=== PATIENT | male | born 1950 | race Caucasian/White ===

== ENCOUNTER → 2019-11-18 14:30 | Outpatient (BNVA) | payer MEDICARE, SELFPAY | PROVIDERS: Family Provider Nurse Practitioner Family; PCP Family Medicine; Visit Provider Family Medicine | DX: I11.0 Hypertensive heart disease with heart failure; M54.5 Low back pain; M25.511 Pain in right shoulder; I50.23 Acute on chronic systolic (congestive) heart failure; M19.90 Unspecified osteoarthritis, unspecified site; R73.09 Other abnormal glucose; Z13.1 Encounter for screening for diabetes mellitus; Z13.220 Encounter for screening for lipoid disorders; Z13.6 Encounter for screening for cardiovascular disorders | CPT/HCPCS: 80053; 80061; 83036 ==

== ENCOUNTER → 2020-05-25 14:28 | Outpatient (BNVA) | payer MEDICARE, SELFPAY | PROVIDERS: Family Provider Nurse Practitioner Family; PCP Family Medicine; Visit Provider Emergency Medicine | DX: M25.561 Pain in right knee (principal); G89.29 Other chronic pain; Z96.652 Presence of left artificial knee joint; R60.9 Edema, unspecified; I50.23 Acute on chronic systolic (congestive) heart failure; F01.51 Vascular dementia, unspecified severity, with behavioral disturbance; I11.0 Hypertensive heart disease with heart failure | CPT/HCPCS: 73562; 80053; 83880; 84443; 85025 ==

== ENCOUNTER 2020-07-31 18:36 | Inpatient (IN) | payer OTHER, SELFPAY ==
[2020-07-31] VITALS (13 sets, daily range): BP systolic 130–169; BP diastolic 61–101; PULSE 96–106; RESP 12–27; TEMP 37.7–38.1; O2SAT 90–99; BMI 45.6
--- NOTE | 2020-07-31 18:55 | XRR_ITS ---
PROCEDURE INFORMATION: Exam: XR Chest Exam date and time: 07/31/2020 7:21 PM Age: 69 years old Clinical indication: Fever; Additional info: Fever, hypoxia TECHNIQUE: Imaging protocol: XR of the chest Views: 1 view. COMPARISON: CR Chest 2 views* [id number] 12/11/2015 7:24 AM FINDINGS: Lungs: The lungs are mildly under inflated. Mild left basilar atelectasis and likely early airspace disease. Mild perihilar peribronchial thickening. Pleural spaces: Unremarkable. No pleural effusion. No pneumothorax. Heart/Mediastinum: Cardiac shadow is near the upper limit of normal size. Bones/joints: No acute abnormality. XR/XR chest 1V portable [id number] IMPRESSION: Findings suggest developing left basilar pneumonia.
--- NOTE | 2020-07-31 18:55 | USCV_ITS ---
Bashir Lyon Age: 69 Gender: M : 1950 Exam Date: 07/31/2020 19:41 Ordering Phys: Florian Montelongo DO Technologist: David Gorman Exam Location: [facility] [place] Indication: PAINFUL LT ARM HISTORY: Pain in lt arm PROCEDURES: Venous duplex imaging was performed in only the left upper extremity. The following venous structures were evaluated: internal jugular vein, subclavian vein, axillary vein, and brachial veins. In addition, the basilic vein, cephalic vein, radial vein, and ulnar vein. Serial compression, augmentation maneuvers, and spectral Doppler flow evaluation were performed. FINDINGS: No DVT seen in any vessel examined. CONCLUSIONS No evidence of DVT in the above-mentioned identifiable veins. Dr Maria Elena Mcclelland MD [facility] (Electronically Signed) Final Date: 01 August 2020 17:30 S
--- NOTE | 2020-07-31 18:57 | ECG_ITS ---
[facility] Test Date: 2020-07-31 Pat Name: Bashir Lyon Department: Room: 104 Gender: Male Aircraft Time Clerk: : 1950 Requested By: Florian Callahan Order Number: [id number] Acacia MD: Garret Santos M.D. Measurements Intervals [place] Rate: 103 P: -17 VT: 148 QRS: -61 QRSD: 128 T: 92 QT: 353 QTc: 464 Interpretive Statements SINUS TACHYCARDIA RIGHT BUNDLE BRANCH BLOCK [120+ ms QRS DURATION, UPRIGHT V1, 40+ ms S IN I/aVL/V4/V5/V6] LEFT ANTERIOR FASCICULAR BLOCK [QRS AXIS <= -45, QR IN I, RS IN II] LEFT VENTRICULAR HYPERTROPHY AND ST-T CHANGE [VOLTAGE CRITERIA PLUS ST/T ABNORMALITY] POSSIBLE SEPTAL MYOCARDIAL INFARCTION , OF INDETERMINATE AGE [30 ms Q WAVE IN V1/V2] Compared to ECG 12/09/2015 11:20:45 Right bundle-branch block now present Myocardial infarct finding now present ST (T wave) deviation still present Electronically Signed On 08-01-2020 19:20:22 CDT by Garret Santos M.D. [id number]
[2020-07-31 19:11] LABS: Basophils % 0.3 %; Eosinophils % 0.4 %; Hemoglobin 14.9 g/dL (11.7-16.6); Lymphocytes # 0.8 10^3/uL (0.8-4.8); Lymphocytes % 7.3 %; Mean Corpuscular HGB Conc 33.1 g/dL (30.0-36.0); Mean Corpuscular Volume 93.8 fL (80-94); Mean Platelet Volume 11.9 fL (7.4-10.4); Monocytes # 1.4 10^3/uL (0.2-0.9); Monocytes % 12.3 %; Neutrophils # 8.71 10^3/uL (1.8-7.7); Neutrophils % 79.2 %; Nucleated Red Blood Cells % 0 %; Platelet Count 188 10^3/cmm (130-400); Red Cell Distribution Width 13.2 % (12.1-15.1)
[2020-07-31 19:24] LABS: Lactate (Lactic Acid level) 0.9 mmol/L (0.5-2.2)
[2020-07-31 19:26] LABS: Troponin(5th) Baseline 38 ng/L (0-15)
[2020-07-31 19:38] LABS: ABG PCO2 58.3 mmHg (35-45); ABG PH Result 7.33 (7.35-7.45); Arterial Blood Gas Hematocrit 45.7 % (42-52); Base Excess ABG 3.3 mmol/L (-2.0-2.0); Blood Gas Allen Test Pos; Blood Gas Sample Site Radial, right; Blood Gas Sample Type Arterial; HCO3 ABG 30.9 mmol/L (22-26); Oxygen Device NC; PO2 ABG 73.1 mmHg (80.0-100.0)
[2020-07-31 19:42] LABS: Alanine Aminotransferase 15 U/L (0-41); Albumin Level 3.7 g/dL (3.5-5.2); Alkaline Phosphatase 85 IU/L (40-130); Anion Gap 14.9 (5-19); Aspartate Amino Transferase 15 U/L (0-40); Blood Urea Nitrogen 14 mg/dL (8-23); C Reactive Protein 173.6 mg/L (0.0-4.9); Calcium 8.4 mg/dL (8.5-10.5); Carbon Dioxide 26 mmol/L (22-29); Chloride 100 mmol/L (98-107); Globulin 4.1 g/dL (1.3-4.6); Glucose 103 mg/dL (65-115); Lipase 32 U/L (13-60); Osmolality Calculated 285 mOsm/kg (285-295); Potassium 3.9 mmol/L (3.5-5.1); Procalcitonin 0.21 ng/mL (0-0.5); Sodium 137 mmol/L (136-145); Total Bilirubin 1.1 mg/dL (0.15-1.2); Total Protein 7.8 g/dL (6.6-8.7)
[2020-07-31 19:50] LABS: Creatine Phosphokinase 441 U/L (39-308)
[2020-07-31] MEDS: haloperidol inj 5 mg/mL INJ 1 mL 3 MG IVP (20:01)
[2020-07-31] MEDS: ondansetron 2 mg/ML SDV 2 mL 4 MG IVP (20:17)
[2020-07-31] MEDS: morphine 4 mg/mL SDV 1 mL IVP (20:17)
--- NOTE | 2020-07-31 20:57 | ECG_ITS ---
[facility] Test Date: 2020-07-31 Pat Name: Bashir Lyon Department: Room: 104 Gender: Male Feeder Operator: : 1950 Requested By: Florian Callahan Order Number: [id number] Acacia MD: Garret Santos M.D. Measurements Intervals [place] Rate: 100 P: -11 AK: 147 QRS: -66 QRSD: 119 T: 84 QT: 353 QTc: 457 Interpretive Statements SINUS TACHYCARDIA INCOMPLETE RIGHT BUNDLE BRANCH BLOCK [90+ ms QRS DURATION, TERMINAL R IN V1/V2, 40+ ms S IN I/aVL/V4/V5/V6] LEFT ANTERIOR FASCICULAR BLOCK [QRS AXIS <= -45, QR IN I, RS IN II] LEFT VENTRICULAR HYPERTROPHY AND ST-T CHANGE [VOLTAGE CRITERIA PLUS ST/T ABNORMALITY] POSSIBLE SEPTAL MYOCARDIAL INFARCTION , OF INDETERMINATE AGE [30 ms Q WAVE IN V1/V2] Compared to ECG 12/09/2015 11:20:45 Incomplete right bundle-branch block now present Myocardial infarct finding now present ST (T wave) deviation still present Electronically Signed On 08-01-2020 19:25:39 CDT by Garert Santos M.D. [id number]
--- NOTE | 2020-07-31 21:40 | P.HP_ITS ---
Providers/Chief Complaint Primary Care Provider: Tanya Bowman MD Chief Complaint: LEFT ELBOW PAIN History of Present Illness Bashir Lyon is a 69 year old male who has been evaluated by primary care physician multiple times for resistant hypertension and drowsiness, presented today for worsening of arm pain and shortness of breath. Patient is not reliable historian, oldest son is in the room point stating that for last few days his father has been drowsy, his antipsychotic medication and Lyrica dose has been adjusted. Patient is stating that he is in the hospital because of worsening of left arm swelling and pain. He is not sure whether he had any insect bites however endorsing swelling started from his knuckles which p rogressed to his dorsum of his hand and now involving forearm. He is denying fever, facial droop, dysphagia, gait instability. He is denying chest pain orthopnea and PND and stating that he is compliant with his medication and takes diuretic twice a day. He was really upset in the emergency department because he was on BiPAP and we were not letting him drink water. Son endorsed that at home he is not very mobile he stays in his couch, he does not smoke or drink alcohol does not use any oxygen at home, he eats canned/junk food as well. Does not follow any restricted diet Diagnosis in the ER revealed left-sided community-acquired pneumonia for which he was started on vancomycin and Zosyn, leukocytosis noted with low-grade temperature, his confusion and drowsiness improved after we put him on BiPAP ABG revealed hypoxic respiratory acidosis, for sinus tachycardia and hypoxia CTA chest was requested by myself, left upper extremity Doppler did not reveal any DVT, BMP revealed EVELYN procalcitonin not remarkable currently patient is chest pain-free troponin not significantly high On 07/30 he was started on doxycycline for cellulitis of left arm Review of records revealed that he was evaluated by PCP who decreased his Lyrica because of his drowsiness and recommended not to drive until reevaluated. Review of Systems Const: Reports: change in appetite, change in weight, fatigue and malaise; Denies: fever(s) or chills Eyes: Denies: change in vision ENMT: Denies: throat pain Card: Reports: swelling of feet/ankles and dyspnea on exertion Resp: Reports: dyspnea and non-productive cough GI: Denies: abdominal pain : Denies: flank pain Musc: Denies: neck pain Skin/Breast: Reports: lesions, dry skin, striae and nail changes Neuro: Denies: headache(s) Psych: Reports: irritability; Denies: anxiety Endo: Denies: polyuria Chandrakant/Lymph: Denies: easy bruising All/Imm: Denies: urticaria Medications/Allergies Home Medications Medication Instructions Recorded Confirmed Last Taken Type cyclobenzaprine 10 mg tablet 15 mg PO TID tab 05/10/19 07/30/20 Unknown History albuterol sulfate 90 mcg/actuation 2 puff INHALATION Q6H PRN 30 Days 08/20/19 07/30/20 Unknown Rx aerosol inhaler #18 gm hydroxyzine HCl 50 mg tablet 50 mg PO TID PRN #180 tab 10/13/19 07/30/20 Unknown Rx mirtazapine 30 mg tablet 30 mg PO .at bedtime #30 tab 05/18/20 07/30/20 Unknown Rx quetiapine 400 mg tablet 400 mg PO BID #60 tab 05/18/20 07/30/20 Unknown Rx sertraline 100 mg tablet 150 mg PO DAILY #45 tab 05/18/20 07/30/20 Unknown Rx furosemide 20 mg tablet 10 mg PO QAM #30 tab 05/25/20 07/30/20 Unknown Rx amlodipine 10 mg tablet 10 mg PO DAILY 30 Days #30 tab 06/08/20 07/30/20 Unknown Rx atenolol 100 mg tablet 100 mg PO DAILY 30 Days #30 tab 06/08/20 07/30/20 Unknown Rx furosemide 40 mg tablet 40 mg PO DAILY 30 Days #30 tab 06/08/20 07/30/20 Unknown Rx hydralazine 10 mg tablet 10 mg PO TID 30 Days #90 tab 06/08/20 07/30/20 Unknown Rx lisinopril 20 2 tab PO DAILY 30 Days #60 tab 06/08/20 07/30/20 Unknown Rx mg-hydrochlorothiazide 12.5 mg tablet meloxicam 15 mg tablet 15 mg PO DAILY PRN 30 Days #30 tab 06/08/20 07/30/20 Unknown Rx pregabalin 225 mg capsule 225 mg PO BID 30 Days #60 cap 07/07/20 07/30/20 Unknown Rx doxycycline hyclate 100 mg tablet 100 mg PO BID 10 Days #20 tab 07/30/20 07/30/20 Unknown Rx tramadol 50 mg tablet 50 mg PO Q6H PRN #20 tab 07/30/20 07/30/20 Unknown Rx Allergies Allergy/AdvReac Type Severity Reaction Status Date / Time No Known Allergies Allergy Verified 07/30/20 10:48 PFSH Acute PFSH: Medical History Acute lumbar back pain Arthritis Asymptomatic hypertensive urgency Chronic pain of right knee Chronic right shoulder pain Congestive heart failure (CHF) Delusional disorders Essential hypertension Lumbar back pain Lung nodule Peripheral edema Post-traumatic stress disorder, chronic Psychiatric diagnosis Vascular dementia with behavioral disturbance Surgical History History of arthroplasty of left knee Hx of cholecystectomy Family History Other Hypertension Social History Smoking and tobacco status: never smoked Second hand smoke exposure: Yes Smoking risk assessment/counseling performed?: No Alcohol intake: never Desire information about alcohol rehabilitation?: No Counseling given: No Desire information about substance/drug rehabilitation?: No Counseling given: No Lives independently: No Household members: children Current occupational status: retired History of recent travel: No Current gender identity: Male Vitals/I&O/Wt Last Vital Signs Temp 100.5 F H 07/31/20 18:50 Pulse 106 H 07/31/20 21:06 Resp 14 07/31/20 20:17 BP 164/101 07/31/20 20:15 Pulse Ox 96 07/31/20 21:06 Weight last 48 hrs Weight 136.078 kg Physical Exam Narrative: EXAM NARRATIVE: Elderly male who was sitting at the bedside with BiPAP settings 18/8 respiratory rate 8 FiO2 40% saturating 92% He was taking his BiPAP off to drink water Have poor insight Irritable mood due to BiPAP usage Clinically looks fluid overloaded Unkept appearance S1, S2 sinus tachycardia without murmur Bilateral lower extremity 2+ pitting edema, venous stasis dermatitis Bilateral assisted breath sounds Dry lower extremity skin with edema EOMI, PERRLA Awake alert oriented x3, his mentation improved after use of BiPAP however he was drowsy in the ER when he was on nonrebreather mask Abdomen soft, distended nontender bowel sound present Left arm swelling, noticed some redness and hyperemia left second digit, no crepitation noted no vascular compromise, no streaking/lymphangitis, handgrips 3/5 as compared to right Data : 07/31/20 19:02 07/31/20 19:02 Micro: Microbiology 07/31/20 20:17 Blood Culture - Preliminary Blood SPECIMEN COLLECTED 07/31/20 19:02 Blood Culture - Preliminary Blood SPECIMEN COLLECTED A&P Assessment and plan (1) Sepsis: Status: Acute (2) Community acquired pneumonia: Status: Acute (3) Acute on chronic respiratory failure with hypoxia and hypercapnia: Status: Acute (4) Cellulitis: Status: Acute Qualifiers: Laterality: left Site of cellulitis: extremity Site of cellulitis of extremity: upper extremity Qualified Code(s): L03.114 - Cellulitis of left uppe r limb (5) EVELYN (acute kidney injury): Status: Acute (6) Acute exacerbation of CHF (congestive heart failure): Status: Acute (7) Morbid obesity: Status: Acute Additional A&P Information Sepsis secondary to community-acquired pneumonia Criteria met with tachypnea, low-grade fever and leukocytosis Procalcitonin unremarkable Left lower lobe pneumonia suspected bacterial in nature We will request urine antigens and blood cultures I will start him on ceftriaxone and azithromycin, in the ER he received vancomycin and Zosyn DuoNeb every 6hr as needed basis Curb 65: Score 4, admitted to ICU Acute hypoxic hypercarbic respiratory failure I do suspect his antipsychotics, painkillers Lyrica has a role to play to cause altered mental status due to hypercarbia which got worsened with underlying EVELYN, considering his BMI high suspicion for sleep apnea, however his bicarb seems to around 26, I do not believe he is a chronic CO2 retainer this is most likely an acute event due to polypharmacy and underlying pneumonia Currently on BiPAP, Goals of care discussed with the patient and his son, he wants to have a trial of CPR and intubation in case of cardiac arrest worsening respiratory failure however does not want to be intubated for prolonged. Monitor in ICU Due to sinus tachycardia and hypoxia requested CTA chest to rule out PE Acute kidney injury Secondary to nephrotoxic agent His compliance with medications is questionable I would hold lisinopril and hydrochlorothiazide Clinically he does look fluid overloaded I will keep him on Bumex for now Monitor urine output, to rule out postobstructive etiology Delusional disorder: I would hold his antipsychotics for now along Lyrica and opioid No acute exacerbation noted during my evaluation Acute CHF exacerbation Grade 1 diastolic dysfunction EF 60% echo 2015 Keep him on Bumex discontinue Lasix He has clinical signs of fluid overload We will repeat echo in the am Left arm swelling Rule out DVT, I do suspect insect bite/spider bite of left third digit We will keep him on ceftriaxone which would cover insect bite cellulitis, I do not see any purulent drainage Morbid obesity: He might benefit from sleep study outpatient considering BMI Full code Cardiac diet DVT prophylaxis Heparin Attestations Medical Necessity Statement*: Anticipating stay in the hospital cross more th an 2 midnights currently needing ICU for acute hypoxic respiratory failure, requiring BiPAP Time Spent in Patient Care: (>than 50% of time spent in counselling and/or direct pt care on unit) . 50mins Coding Level of Care Code Acute Belt Builder for [facility] Fwd Diagnoses Sepsis A41.9 Community acquired pneumonia J18.9 Acute on chronic respiratory failure with hypoxia and hypercapnia J96.21; J96.22 Cellulitis L03.114 Laterality: left Site of cellulitis: extremity Site of cellulitis of extremity: upper extremity EVELYN (acute kidney injury) N17.9 Acute exacerbation of CHF (congestive heart failure) I50.9 Morbid obesity E66.01
[2020-07-31 22:03] LABS: Troponin 5 2HR 35.99 ng/L (0-15)
[2020-07-31 22:05] LABS: Troponin 5 2HR Delta -2.01 ABS# (0-10)
[2020-07-31] MEDS: vancomycin 1,000 MG in sodium chloride 0.9% 250 ML 250 MG IV (22:07)
--- NOTE | 2020-07-31 22:43 | CTR_ITS ---
PROCEDURE INFORMATION: Exam: CT Angiography Chest With Contrast Exam date and time: 07/31/2020 11:03 PM Age: 69 years old Clinical indication: Other: Resp failure; Additional info: Type ii respiratory failure TECHNIQUE: Imaging protocol: Computed tomographic angiography of the chest with contrast. 3D rendering (Not supervised by radiologist): MIP and/or 3D reconstructed images were created by the technologist. Radiation optimization: All CT scans at this facility use at least one of these dose optimization techniques: automated exposure control; mA and/or kV adjustment per patient size (includes targeted exams where dose is matched to clinical indication); or iterative reconstruction. Contrast material: VISI; Contrast volume: 66 ml; Contrast route: INTRAVENOUS (IV); COMPARISON: CR XR chest 1V portable [id number] 07/31/2020 7:08 PM RADIATION DOSE METRICS: Total DLP (mGy-cm): 507.88 FINDINGS: Pulmonary arteries: No evidence of pulmonary embolus. Aorta: No acute abnormality. Lungs: Mild atelectasis. Pleural spaces: Unremarkable. No pneumothorax. No pleural effusion. Heart: No cardiomegaly. No pericardial effusion. Lymph nodes: No enlarged lymph nodes. Liver: Hepatic steatosis. Bones/joints: Moderate degenerative changes spine. Soft tissues: Within normal limits. Other findings: Scattered vascular calcifications. CT/CT angio chest PE protcl [id number] IMPRESSION: 1. No evidence of pulmonary embolus. 2. Mild atelectasis. 3. Hepatic steatosis. Radiation Dose CTDIVOL = (mGy): DLP = 507.88 (mGy-cm)
[2020-07-31 23:11] LABS: ABG PH Result 7.26 (7.35-7.45); Arterial Blood Gas Hematocrit 44.3 % (42-52); Base Excess ABG -0.1 mmol/L (-2.0-2.0); Blood Gas Sample Site Radial, right; Blood Gas Sample Type Arterial; HCO3 ABG 28.8 mmol/L (22-26); Oxygen Device BIPAP
[2020-07-31 23:12] LABS: ABG PCO2 64.8 mmHg (35-45)
[2020-07-31] MEDS: iodixanol 320 mg/mL 100mL Btl IV (23:33)
--- NOTE | 2020-07-31 23:45 | PC.NURSE ---
Admit Note Arrived to unit from ER at this time via gurney. Pt arrived with awake oriented to person/birthday only. Pt drowsy but responsive . Once transferred over to ICU bed, pt was placed on bedside partition assembler and RT applied Bipap. Vancomycin hanging on arrival to unit. Left knuckles, hand and forearm edematous non-pitting edema. Erythema noted and hot to touch. Extremity elevated, patient reports pain and grimaces with movement. BLE are large 3+ pitting with erythema. Blanchable redness noted to buttock. Bilateral groin and pannus fold are red.
--- NOTE | 2020-07-31 23:45 | W.ED.EXTPRO ---
HPI - Extremity Problem General: Chief complaint: Extremity Problem,Nontraumatic Stated complaint: LEFT ELBOW PAIN Time Seen by Provider: 07/31/20 18:38 History of Present Illness: HPI Narrative: 69-year-old gentleman with 2 distinct problems. He had been seen 2 days ago in clinic for forearm and hand redness, swelling, and pain. He was placed on doxycycline. This did not seem to be helping, as the pain and swelling worsened. Pain swelling and redness is now stretched up into his arm. He has had a temperature. He was also found on scene by EMS to be quite hypoxic with pulse ox in the 70s. He was having trouble breathing and was quite lethargic. He was placed on nonrebreather with improvement in his oxygenation on the way here. He does not usually use oxygen at home. He has a history of hypertension. Associated symptoms: Reports fever(s) and rash; Deny chest pain Review of Systems Const: Reports: fever(s) and chills Eyes: Denies: change in vision ENMT: Denies: odynophagia or sinus pain Card: Reports: edema, swelling of feet/ankles, dyspnea on exertion and orthopnea; Denies: chest pain or palpitations Resp: Reports: dyspnea and non-productive cough; Denies: productive cough or wheezing GI: Denies: abdominal pain, nausea or vomiting : Denies: difficulty urinating or hematuria Musc: Denies: neck pain or joint warmth Skin/Breast: Reports: rash and erythema Neuro: Reports: confusion; Denies: headache(s) or dizziness Psych: Denies: anxiety PFSH ED PFSH: Medical History Acute lumbar back pain Arthritis Asymptomatic hypertensive urgency Chronic pain of right knee Chronic right shoulder pain Congestive heart failure (CHF) Delusional disorders Essential hypertension Lumbar back pain Lung nodule Peripheral edema Post-traumatic stress disorder, chronic Psychiatric diagnosis Vascular dementia with behavioral disturbance Surgical History History of arthroplasty of left knee Hx of cholecystectomy Family History Other Hypertension Social History Smoking and tobacco status: never smoked Second hand smoke exposure: Yes Smoking risk assessment/counseling performed?: No Alcohol intake: never Desire information about alcohol rehabilitation?: No Counseling given: No Desire information about substance/drug rehabilitation?: No Counseling given: No Lives independently: No Household members: children Current occupational status: retired History of recent travel: No Current gender identity: Male Physical Exam Const: GENERAL APPEARANCE: lethargic and ill appearing ORIENTATION/CONSCIOUSNESS: Yes oriented to person and Yes lethargic; not oriented to place and not oriented to time HENMT: COMMON NORMALS: normocephalic, external ears normal and Normal external nose present HEAD & SCALP: normocephalic FACE & SINUS: normal facial exam NOSE: Normal external nose present and No nasal discharge present EXTERNAL EAR: Yes external ears normal Eye: COMMON NORMALS: Equal, round and reactive pupils present, EOMs intact bilaterally and conjunctivae normal EYELID: eyelids normal CONJUNCTIVA: Yes conjunctivae normal PUPIL: Yes Equal, round and reactive pupils present Chest: COMMONS NORMALS: normal inspection of the chest CHEST: No tenderness Resp: EFFORT & INSPECTION: Yes tachypneic, Yes respiratory distress, No retractions, Yes uses accessory muscles and No tracheal deviation AUSCULTATION: no rhonchi, no wheezes and diminished lung sounds Cardio: COMMON NORMALS: regular rhythm RATE: tachycardic RHYTHM: regular rhythm HEART SOUNDS: no murmurs PERIPHERAL PULSES: radial pulses present GI: INSPECTION: No abdominal distension AUSCULTATION: No Hyperactive bowel sounds present and No Hypoactive bowel sounds present PALPATION: No Guarding due to palpation present (GI) and No Rigid due to palpation PERCUSSION: no dullness to percussion and no tympanic to percussion Extremity: NARRATIVE EXTREMITY EXAM: Examination of the left upper extremity reveals significant forearm swelling with swelling down into the hand and fingers, particularly the dorsum. There is warmth and erythema as well. No streaking. Tenderness stretches up into the mid arm. It spares the shoulder. He has changes of stasis dermatitis with chronic edema to his bilateral extremities lower as well Neuro: SENSORIUM/ORIENTATION: Yes oriented to person, No oriented to place, No oriented to time, Yes lethargic and Yes somnolent CRANIAL NERVES: Yes CN normal except as noted SPEECH: speech normal Skin: COMMON NORMALS: no rashes or lesions noted GENERAL SKIN EXAM: no rashes or lesions noted Course Consultations: Consultation #1: [email or web address] Vital Signs: Vital signs: Vital Signs Temperature 99.8 F H 07/31/20 22:57 Pulse Rate 96 07/31/20 22:57 Respiratory Rate 15 07/31/20 22:57 Blood Pressure 164/72 07/31/20 22:57 Pulse Oximetry 97 07/31/20 22:57 Critical Care Time Critical Care Time: Critical Care Time: Yes Total Critical Care Time: 40 Attestation: This case had a high probability of a clinically significant, sudden, or life threatening deterioration of this patient's condition which required my full and direct attention, intervention and personal management. MDM - Extremity (Nontraumatic) MDM Narrative: Medical decision making narrative: Ultrasound of the left upper extremity is negative for DVT. Chest x-ray shows a left basilar pneumonia. White blood cell count is 11. His CRP is significant elevated regarding the cellulitis to the left upper extremity. His creatinine is 1.3. Other labs are benign. His ABG initially showed a respiratory acidosis. He was placed on BiPAP, as he was awake and talking. Clinically, he became less lethargic, and improved to some degree, and was complaining wanting the BiPAP off however, on repeat blood gas testing, his PCO2 had actually come up a bit. He may require intubation later, but he is clinically still improved mental status vila from his prior exam. He will go to the ICU. He is received vancomycin and Zosyn for the cellulitis as well as pneumonia. Lab Data: Labs: Lab Results 07/31/20 07/31/20 07/31/20 Range/Units 19:02 19:02 19:02 WBC 11.0 H (4.0-10.0) 10^3/ uL RBC 4.80 (4.1-5.3) 10^6/u L Hgb 14.9 (11.7-16.6) g/dL Hct 45.0 (42.0-52.0) % MCV 93.8 (80-94) fL MCH 31.0 (28.0-34.0) pg MCHC 33.1 (30.0-36.0) g/dL RDW 13.2 (12.1-15.1) % Plt Count 188 (130-400) 10^3/c mm MPV 11.9 H (7.4-10.4) fL Neut % (Auto) 79.2 % Lymph % (Auto) 7.3 % [place] % (Auto) 12.3 % Eos % (Auto) 0.4 % Baso % (Auto) 0.3 % Neut # (Auto) 8.71 H (1.8-7.7) 10^3/u L Lymph # (Auto) 0.8 (0.8-4.8) 10^3/u L [place] # (Auto) 1.4 H (0.2-0.9) 10^3/u L Eos # (Auto) 0.0 (0.0-0.8) 10^3/u L Baso # (Auto) 0.0 (0.0-0.1) 10^3/u L Nucleated RBC % (a uto) 0 % Nucleated RBCs # 0.0 /100WBC Specimen Type Sample Site ABG pH (7.35-7.45) ABG pCO2 (35-45) mmHg ABG pO2 (80.0-100.0) mmH g ABG HCO3 (22-26) mmol/L ABG Base Excess (-2.0-2.0) mmol/ L Fili Test Hematocrit (42-52) % O2 Delivery Device O2 Liters/Min % Production Internship ID Sodium 137 (136-145) mmol/L Potassium 3.9 (3.5-5.1) mmol/L Chloride 100 (98-107) mmol/L Carbon Dioxide 26 (22-29) mmol/L Anion Gap 14.9 (5-19) BUN 14 (8-23) mg/dL Creatinine 1.3 H (0.7-1.2) mg/dL GFR Calculation Not Reportable Glucose 103 (65-115) mg/dL Calculated Osmolal ity 285 (285-295) mOsm/k g Lactate 0.9 (0.5-2.2) mmol/L Calcium 8.4 L (8.5-10.5) mg/dL Total Bilirubin 1.1 (0.15-1.2) mg/dL AST 15 (0-40) U/L ALT 15 (0-41) U/L Alkaline Phosphata se 85 (40-130) IU/L Creatine Kinase 441 H* (39-308) U/L Troponin T Baselin e (0-15) ng/L Troponin T 120 Min akhil (0-15) ng/L Delta Troponin T (0-10) ABS# C-Reactive Protein 173.6 H (0.0-4.9) mg/L Total Protein 7.8 (6.6-8.7) g/dL Albumin 3.7 (3.5-5.2) g/dL Globulin 4.1 (1.3-4.6) g/dL Lipase 32 (13-60) U/L Procalcitonin 0.21 (0-0.5) ng/mL 07/31/20 07/31/20 07/31/20 Range/Units 19:02 19:38 21:38 WBC (4.0-10.0) 10^3/ uL RBC (4.1-5.3) 10^6/u L Hgb (11.7-16.6) g/dL Hct (42.0-52.0) % MCV (80-94) fL MCH (28.0-34.0) pg MCHC (30.0-36.0) g/dL RDW (12.1-15.1) % Plt Count (130-400) 10^3/c mm MPV (7.4-10.4) fL Neut % (Auto) % Lymph % (Auto) % [place] % (Auto) % Eos % (Auto) % Baso % (Auto) % Neut # (Auto) (1.8-7.7) 10^3/u L Lymph # (Auto) (0.8-4.8) 10^3/u L [place] # (Auto) (0.2-0.9) 10^3/u L Eos # (Auto) (0.0-0.8) 10^3/u L Baso # (Auto) (0.0-0.1) 10^3/u L Nucleated RBC % (a uto) % Nucleated RBCs # /100WBC Specimen Type Arterial Sample Site Radial, right ABG pH 7.33 L (7.35-7.45) ABG pCO2 58.3 H (35-45) mmHg ABG pO2 73.1 L (80.0-100.0) mmH g ABG HCO3 30.9 H (22-26) mmol/L ABG Base Excess 3.3 H (-2.0-2.0) mmol/ L Fili Test Pos Hematocrit 45.7 (42-52) % O2 Delivery Device Nc O2 Liters/Min 4.0 % Production Internship ID Christiano Sodium (136-145) mmol/L Potassium (3.5-5.1) mmol/L Chloride (98-107) mmol/L Carbon Dioxide (22-29) mmol/L Anion Gap (5-19) BUN (8-23) mg/dL Creatinine (0.7-1.2) mg/dL GFR Calculation Glucose (65-115) mg/dL Calculated Osmolal ity (285-295) mOsm/k g Lactate (0.5-2.2) mmol/L Calcium (8.5-10.5) mg/dL Total Bilirubin (0.15-1.2) mg/dL AST (0-40) U/L ALT (0-41) U/L Alkaline Phosphata se (40-130) IU/L Creatine Kinase (39-308) U/L Troponin T Baselin e 38 H (0-15) ng/L Troponin T 120 Min akhil 35.99 H (0-15) ng/L Delta Troponin T -2.01 L (0-10) ABS# C-Reactive Protein (0.0-4.9) mg/L Total Protein (6.6-8.7) g/dL Albumin (3.5-5.2) g/dL Globulin (1.3-4.6) g/dL Lipase (13-60) U/L Procalcitonin (0-0.5) ng/mL Discharge Plan Discharge Patient Disposition: Admitted As Inpatient Admit Provider: Katharina Espinoza Clinical Impression: Cellulitis Qualifiers: Site of cellulitis: extremity Site of cellulitis of extremity: upper extremity Laterality: left Qualified Code(s): L03.114 - Cellulitis of left upper limb Pneumonia Qualifiers: Pneumonia type: due to unspecified organism Laterality: left Lung location: lower lobe of lung Qualified Code(s): J18.9 - Pneumonia, unspecified organism Respiratory failure with hypoxia and hypercapnia Qualifiers: Chronicity: acute Qualified Code(s): J96.01 - Acute respiratory failure with hypoxia Condition: Serious Coding Level of Care Code ED Hot Wound [place] Production Supervisor for [facility] Fwd Exam Comprehensive
[2020-08-01] VITALS (85 sets, daily range): BP systolic 91–172; BP diastolic 49–105; PULSE 65–100; RESP 0–32; TEMP 36.6–38.2; O2SAT 85–99
[2020-08-01] MEDS: cefTRIAXone 1,000 MG in sodium chloride 0.9% (plus) 50 ML 100 MG IV ×2 (00:27→23:05)
[2020-08-01] MEDS: heparin 5,000 unit/mL INJ 1 mL 5000 UNIT SUBCUT ×4 (00:28→23:05)
[2020-08-01] MEDS: piperacillin-tazobactam 3.375 GM in sodium chloride 0.9% (plus) 50 ML IV (01:04)
--- NOTE | 2020-08-01 01:11 | USCV_ITS ---
Bashir Lyon Age: 69 Gender: M : 1950 Exam Date: 08/01/2020 06:17 Ordering Phys: Technologist: David Gorman Exam Location: [facility] [place] Indication: CHF EXACERBATION BP: 153 / 73 HR: 88 Rhythm: Sinus Technical Quality: Very technically difficult study MEASUREMENTS (Male / Female) Normal Values 2D ECHO LV Diastolic Diameter PLAX 4.1 cm 4.2 - 5.9 / 3.9 - 5.3 cm LV Systolic Diameter PLAX 3.8 cm IVS Diastolic Thickness 1.3 cm 0.6 - 1.0 / 0.6 - 0.9 cm IVS Systolic Thickness 1.7 cm LVPW Diastolic Thickness 1.1 cm 0.6 - 1.0 / 0.6 - 0.9 cm LVPW Systolic Thickness 1.8 cm LVOT Diameter 2.1 cm LV Ejection Fraction 2D Teich 6.8 % LA Diameter 4.6 cm M-MODE LV Diastolic Diameter MM 6.0 cm 4.2 - 5.9 / 3.9 - 5.3 cm LV Systolic Diameter MM 4.5 cm LV Ejection Fraction MM Teich 48.7 % IVS Diastolic Thickness MM 1.4 cm 0.6 - 1.0 / 0.6 - 0.9 cm IVS Systolic Thickness MM 2.1 cm LVPW Diastolic Thickness MM 1.6 cm 0.6 - 1.0 / 0.6 - 0.9 cm LVPW Systolic Thickness MM 2.1 cm RV Diastolic Diameter MM 1.9 cm Aortic Annulus Diameter 3.6 cm LA Ao Ratio MM 1.3 MV E Point Septal Separation 1.0 cm DOPPLER AV Peak Velocity 141.0 cm/s LVOT Peak Velocity 91.0 cm/s AV Area Cont Eq vti 1.8 cm squared AV Area Cont Eq pk 2.2 cm squared MV Area PHT 5.0 cm squared Mitral E to A Ratio 0.8 MV E' Velocity 46.5 cm/s Mitral E to MV E' Ratio 13.2 Mitral E to LV E' Lateral Ratio 12.5 Mitral E to LV E' Septal Ratio 14.1 TR Peak Velocity 115.0 cm/s TR Peak Gradient 5.3 mmHg TV Peak E Velocity 90.0 cm/s Right Atrial Pressure 3.0 mmHg Pulmonary Artery Systolic Pressu 8.3 mmHg PV Peak Velocity 130.0 cm/s FINDINGS Left Ventricle Normal left ventricular cavity size. Normal left ventricular systolic function. Left ventricular ejection fraction is estimated at 55 %. Right Ventricle The right ventricle is normal in size and function. Right Atrium The right atrium is normal in size. Left Atrium The left atrium is normal in size. Mitral Valve Mitral valve not well visualized. Aortic Valve Aortic valve sclerosis without stenosis or regurgitation. Tricuspid Valve Thickened tricuspid valve. No tricuspid valve regurgitation. Pulmonic Valve Structurally normal pulmonic valve without significant stenosis. There is no pulmonic regurgitation. Pericardium Normal pericardium without effusion. Aorta Normal ascending aorta dimension. CONCLUSIONS 1-Normal left ventricular cavity size. Normal left ventricular systolic function. Left ventricular ejection fraction is estimated at 55 %. 2-There is no pericardial effusion. 3-No significant valve abnormalities. 4-Pulmonary artery systolic pressure is within normal limits. 5-Technically challenging and difficult study with suboptimal images therefore cannot compared with prior echocardiogram. Katharina Tolentino MD (Electronically Signed) Final Date: 01 August 2020 21:11 S
[2020-08-01 01:28] LABS: ABG PH Result 7.22 (7.35-7.45); Blood Gas Allen Test Pos; Blood Gas Sample Site Radial, right; Blood Gas Sample Type Arterial; HCO3 ABG 31.1 mmol/L (22-26); Oxygen Device BIPAP
[2020-08-01 01:36] LABS: ABG PCO2 76.5 mmHg (35-45)
[2020-08-01 01:36] LABS: SARS Covid-2 Antigen Negative (Negative)
--- NOTE | 2020-08-01 01:40 | PC.NURSE ---
Notified of worsening ABG on AVAP settings with Bipap. Notified physician of negative rapid covid test. Neurologically pt is more alert, oriented to birthday, self, and place. Pt able to participate with admission. Pt has attempted getting out of bed a couple times and made many verbal statements regarding disliking the bipap. Telephone orders received to repreat another ABG at 0400 and send PCR covid test. Pt remains on droplet/contact isolation.
--- NOTE | 2020-08-01 02:15 | PC.NURSE ---
Bladder Scan completed at this time. Pt unable to void x 2. Volume scanned >605ml. Telephone orders received by Dr. Espinoza to place indwelling cruz catheter. Received 700ml dark balta urine, samples obtained. Pt tolerated well.
[2020-08-01 03:04] LABS: Add Urine Microscopic? YES; Bilirubin Urine Neg (Negative); Blood Urine Neg (Negative); Glucose Urine UA Norm (Normal); Ketones Urine Negative (Negative); Leukocyte Esterase Urine Negative (Negative); Nitrate Urine Negative (Negative); Protein Urine Trace (Negative); Specific Gravity, Urine 1.025 (1.005-1.030); Urine Appearance Clear (CLEAR); Urine Color Yellow (Yellow); Urobilinogen Urine Norm (Negative); pH Urine 5 (5-7)
[2020-08-01 03:05] LABS: Amorphous Sediment Urine TRACE /hpf; Bacteria Urine TRACE /hpf; RBC Urine 0-4 /hpf (0-2); Squamous Epithelial Cell Urine 0-4 /hpf (0-5); WBC Urine 0-4 /hpf (0-5)
[2020-08-01 03:06] LABS: Add Urine Culture? No; Hyaline Casts Urine 0-4 /lpf
[2020-08-01 03:59] LABS: ABG PH Result 7.29 (7.35-7.45); Arterial Blood Gas Hematocrit 40.8 % (42-52); Base Excess ABG 2.8 mmol/L (-2.0-2.0); Blood Gas Allen Test Pos; Blood Gas Sample Type Arterial; HCO3 ABG 31.3 mmol/L (22-26)
[2020-08-01 04:00] LABS: ABG PCO2 65.2 mmHg (35-45); Blood Gas Sample Site Radial, right; Oxygen Device BIPAP
[2020-08-01 05:23] LABS: Basophils % 0.2 %; Eosinophils % 0.1 %; Hematocrit 42.5 % (42.0-52.0); Hemoglobin 13.5 g/dL (11.7-16.6); Lymphocytes # 0.9 10^3/uL (0.8-4.8); Lymphocytes % 7.4 %; Mean Corpuscular HGB Conc 31.8 g/dL (30.0-36.0); Mean Corpuscular Hemoglobin 30.7 pg (28.0-34.0); Mean Corpuscular Volume 96.6 fL (80-94); Mean Platelet Volume 12.5 fL (7.4-10.4); Monocytes # 1.6 10^3/uL (0.2-0.9); Monocytes % 13.1 %; Neutrophils # 9.59 10^3/uL (1.8-7.7); Neutrophils % 78.7 %; Nucleated Red Blood Cells % 0 %; Platelet Count 190 10^3/cmm (130-400); Red Cell Distribution Width 13.4 % (12.1-15.1); White Blood Count 12.2 10^3/uL (4.0-10.0)
[2020-08-01] MEDS: acetaminophen 500 mg Tablet PO (05:38)
[2020-08-01 05:46] LABS: Blood Urea Nitrogen 13 mg/dL (8-23); Calcium 8.1 mg/dL (8.5-10.5); Carbon Dioxide 28 mmol/L (22-29); Chloride 98 mmol/L (98-107); Glucose 110 mg/dL (65-115); Osmolality Calculated 281 mOsm/kg (285-295); Sodium 135 mmol/L (136-145)
[2020-08-01 06:03] LABS: Anion Gap 13.2 (5-19); NT Pro B Type Natriuretic Pept 474 pg/mL (0-125); Potassium 4.2 mmol/L (3.5-5.1)
[2020-08-01 06:42] LABS: Troponin 5 6HR 28.27 ng/L (0-15)
[2020-08-01 06:44] LABS: Troponin 5 6HR Delta -9.73 ng/L (0-12)
[2020-08-01] MEDS: ipratropium-albuterol 3 mL Neb INHALATION (07:32)
--- NOTE | 2020-08-01 07:35 | PC.NURSE ---
Bedside Report given to VIKTOR Chase. Pt having increase pain in left hand to elbow. Moaning out in pain, holding arm and rates 10/10. Extremitiy elevated.
[2020-08-01] MEDS: hyDRALAzine 10 mg Tablet PO ×3 (08:23→20:34)
[2020-08-01] MEDS: atenolol 50 mg Tablet 100 MG PO (08:23)
[2020-08-01] MEDS: HYDROcodone-acetaminophen 5-325 mg Tablet 1 TAB PO ×3 (08:23→19:05)
[2020-08-01] MEDS: azithromycin 250 mg Tablet 500 MG PO (08:24)
[2020-08-01] MEDS: bumetanide 0.25 mg/mL SDV 4 mL 1 MG IV (08:24)
--- NOTE | 2020-08-01 09:51 | PC.CHAP ---
Pastoral Care Encounter/Spiritual Assessment Type of Contact [] Declined social sciences instructor visit [] Patient/Family/Request visit [] Outpatient visit [] Follow-up visit [] Physician referral [] Code/Alert [x] Routine visit [] Staff referral [] Actively dying [] Patient sleeping [] Family support [] [] Out of room [] Palliative care [] [] Receiving care in room [] Pre-surgical visit [] Trauma [] Long length of stay [x] ICU visit [] Other: Relational/Emotional Strength [] Patient feels connected with others/family/visitors/staff [] Distress [] Loneliness/isolation [] Abandonment Spirituality of Patient [] Person of Eva [] Attends Sikhism of their Eva [] Believes in Prayer [] Reads Bible or Episcopal materials [] There are Spiritual issues to be addressed Blasting Worker Interventions [x] Prayer [] Active listening [] Non-anxious presence [] Spiritual/emotional support [] Crisis/trauma care [] Spiritual counseling [] Bereavement support [] Provided bereavement packet [] Provided Bible/devotional materials [] Provided toy/stuffed animal, coloring book to patient or family member [] Provided Communion [] Anointing/[place] [] Salvation [x] Completed spiritual assessment [] Other: Impact on Illness or Injury [] Angry [] Fearful [] Anxious [] Often cries [] Exhaustion [] Unable to work [] Unable to attend taoist [] Unable to walk/stand [] Unable to read [] Unable to drive [] Unable to eat/drink [] Unable to sleep [] Unable to be with family [] Patient intubated [] Other: Summary Time spent with patient
--- NOTE | 2020-08-01 10:33 | CT_ITS ---
WS: [id number] CT LEFT HAND WITH CONTRAST HISTORY: swelling, pain Technique: All CT scans at [facility] use at least one of these dose optimization techniq ues: automated exposure control; mA and/or kV adjustment per patient size (includes targeted exams wh ere dose is matched to clinical indication); or iterative reconstruction. DLP: 1345.44 mGy.cm COMPARISON: None available. Extremely limited evaluation of the LEFT hand due to patient's condition. Degenerative subchondral cy stic changes at the wrist. Mild widening of the scapholunate interval. Advanced degenerative changes at the first carpometacarpal joint. No erosions at the metacarpal heads. No displacement or fractures . There is mild diffuse soft tissue edema. No focal areas of enhancement are abscess is identified. CT/CT hand LT w con [id number] IMPRESSION: 1. No abscess or bone destruction. 2. Mild diffuse cellulitis. 3. Severe osteoarthritis at the first carpometacarpal joint and at the radioca rpal joint.
--- NOTE | 2020-08-01 10:33 | CT_ITS ---
WS: [id number] CT LEFT ELBOW WITH CONTRAST HISTORY: pain, swelling Technique: All CT scans at [facility] use at least one of these dose optimization techniq ues: automated exposure control; mA and/or kV adjustment per patient size (includes targeted exams wh ere dose is matched to clinical indication); or iterative reconstruction. DLP: 2558.78 mGy-cm. COMPARISON: None available. This is extremely limited evaluation of the elbow due to motion. No fracture or malalignment. Subtle fractures would be obscured by the amount of motion. There is mild soft tissue swelling. Fluid collec tion posterior to the olecranon consistent with olecranon bursitis extends over length of 3 cm. There is a moderate-sized joint effusion. CT/CT elbow LT w con [id number] IMPRESSION: 1. Extremely limited evaluation of the elbow due to multiple factors. 2. No fracture identified. 3. Mild diffuse cellulitis. 4. Moderate-sized joint effusion. With no history of trauma septic joint is no t excluded. 5. Fluid collection along the olecranon is a typical location for olecranon bu rsitis. Cannot exclude abscess.
--- NOTE | 2020-08-01 10:36 | PM.PN ---
Subjective Subjective: Interval history: Tolerating BiPAP. Denies shortness of breath. Denies chest pain. Swelling and pain in the left hand, forearm. Reports pain is on the dorsal surface mostly. Does have pain with moving. Trouble bending fingers due to swelling. Denies loss of sensation. Vitals/I&O/Wt Last Vital Signs Temp 98.8 F 08/01/20 08:00 Pulse 71 08/01/20 10:15 Resp 15 08/01/20 10:15 BP 159/81 08/01/20 10:15 Pulse Ox 96 08/01/20 10:15 07/31/20 08/01/20 08/01/20 22:59 06:59 14:59 Intake Total 300 / 300 Output Total 800 / 800 Balance -500 / -500 Weight last 48 hrs Weight 136.078 kg Physical Exam Const: COMMON NORMALS: no acute distress and patient oriented x3 GENERAL APPEARANCE: disheveled NUTRITIONAL APPEARANCE: obese OTHER: BiPAP on HENMT: COMMON NORMALS: oropharynx normal Neck/C-Spine: COMMON NORMALS: no JVD Resp: COMMON NORMALS: normal respiratory effort AUSCULTATION: diminished lung sounds Cardio: COMMON NORMALS: no JVD, regular rhythm, S1 normal heart sound present, S2 normal heart sound present and No murmurs present (Cardio) RHYTHM: regular rhythm HEART SOUNDS: S1 normal heart sound present and S2 normal heart sound present GI: COMMON NORMALS: Normal to inspection, nondistended, normoactive bowel sounds present, Soft to palpation and non-tender PALPATION: Yes Soft to palpation Extremity: COMMON NORMALS: no joint enlargement GENERAL: Yes edema (2+ LE) OTHER: Left hand, forearm with 3+ swelling, dorsally mostly, with trouble bending fingers due to swelling. No loss of sensation. Warm. Well perfused. No cyanosis or mottling. No significant erythema. Minimal skin crack over left third knuckle, without surrounding erythema, no drainage. Neuro: COMMON NORMALS: patient oriented x3 and moves all extremities Skin: COMMON NORMALS: no rashes or lesions noted GENERAL SKIN EXAM: no rashes or lesions noted OTHER: Extensive acanthosis nigricans of lower extremities, venous stasis, venous stasis dermatitis, bilateral erythema irregular elongated patches mid anterior shins, some eschar from previous healed ulcerations. Currently no drainage. Urinary Catheter Management^: Leong: Cath Placed During This Visit: yes Reason for Continuing Indwelling Catheter: Acute Urinary Retention or Obstruction Urinary Catheter Date of Insertion: 08/01/20 Urinary Catheter Time of Insertion: 01:55 Data : 08/01/20 02:34 08/01/20 02:34 Micro: Microbiology 08/01/20 02:03 Bacterial Antigens - Final Urine,Voided 08/01/20 02:03 Legionella Urinary Antigen - Final Urine Catheterized 07/31/20 20:17 Blood Culture - Preliminary Blood SPECIMEN COLLECTED 07/31/20 19:02 Blood Culture - Preliminary Blood SPECIMEN COLLECTED A&P Assessment and plan (1) Sepsis: Pneumonia, cellulitis. As below. Could not reach his for updae. Status: Acute (2) Community acquired pneumonia: His respiratory surfaces stabilized. He is tolerating BiPAP well. Oxygenating well. Will need to monitor his mental status, discussed with nursing staff, since due to pain he is needing pain medication stronger than Tylenol which he stated did not work for him. Continue ceftriaxone, azithromycin at this time. Follow COVID PCR Status: Acute (3) Acute on chronic respiratory failure with hypoxia and hypercapnia: Multifactorial. Polypharmacy. Recently decreased Lyrica dose. Cautious use of pain medications. Treat pneumonia. Treat CHF. Status: Acute (4) Cellulitis: We will go ahead and add vancomycin. There is good amount of edema. He does appear to have sensation intact, and motor function intact. No mottling or cyanosis, however, is quite tender with PROM. We discussed risks and benefits of additional assessment by CT with contrast to assess for deeper soft tissue infection. He is agreeable. Follow-up duplex ultrasound. Status: Acute Qualifiers: Laterality: left Site of cellulitis: extremity Site of cellulitis of extremity: upper extremity Qualified Code(s): L03.114 - Cellulitis of left upper limb (5) EVELYN (acute kidney injury): Appears to be improving. Creatinine down to 1.2. Avoid NSAIDs. Discussed with him regarding the risk of contrast nephropathy. Status: Acute (6) Acute exacerbation of CHF (congestive heart failure): Continues on Bumex for now. Monitor I&O. Renal function. Status: Acute (7) Morbid obesity: Status: Acute Additional A&P Information Delusional disorder: antipsychotics for now on hold along Lyrica and opioid Morbid obesity: He might benefit from sleep study outpatient considering BMI Attestations Medical Necessity Statement*: Continue admission for assessment management of multifactorial sepsis, community-acquired pneumonia, respiratory failure, cellulitis. Coding Level of Care Code Acute Smoking Tobacco Packing Machine Hand for Chg Fwd Diagnoses Sepsis A41.9 Community acquired pneumonia J18.9 Acute on chronic respiratory failure with hypoxia and hypercapnia J96.21; J96.22 Cellulitis L03.114 Laterality: left Site of cellulitis: extremity Site of cellulitis of extremity: upper extremity EVELYN (acute kidney injury) N17.9 Acute exacerbation of CHF (congestive heart failure) I50.9 Morbid obesity E66.01
[2020-08-01] MEDS: vancomycin 1,500 MG/300 ML PIGGYBACK 200 MG IV (11:32)
[2020-08-01] MEDS: iohexol 300 mg/mL 100 mL Btl IV ×2 (12:42)
--- NOTE | 2020-08-01 13:11 | PC.NURSE ---
Nurse transported pt to radiology for CT of arm. Transported via hospital bed and masked during transport. Transport was uneventful.
[2020-08-01 14:06] LABS: Coronavirus Test Green County Not Detected
--- NOTE | 2020-08-01 15:51 | PC.NURSE ---
Patient was complaining of pain in his left hand 8 or 9 /10. NUrse administered prn hydrocodone. minerva reassessment, the patient still rates the pain as 9/10, but states is tolerable now and doesn't request additional pain relief options. Nurse also elevated left hand to aid i pain relief and reduce swelling.
--- NOTE | 2020-08-01 19:38 | PC.NURSE ---
Patient's son dropped off home medication Quetiapine. Nurse placed it in a biohazrd bag and put it in the pyxis. Nurse alerted oncoming nurse as well.
[2020-08-01] MEDS: HYDROcodone-acetaminophen 10-325 mg Tablet 1 TAB PO ×2 (20:34→23:51)
[2020-08-01] MEDS: LORazepam 2 mg/mL INJ 1 mL 0.5 MG IVP (22:03)
[2020-08-01] MEDS: dexmedetomidine 400 MCG in sodium chloride 0.9% (100 ml) 100 ML 17.7 MCG IV (22:54)
[2020-08-01 22:58] LABS: ABG PCO2 49.3 mmHg (35-45); ABG PH Result 7.41 (7.35-7.45); Alveolar-Arterial Oxygen Gradi 4.1 mmHg (5-10); Arterial Blood Gas Hematocrit 40.5 % (42-52); Base Excess ABG 5.4 mmol/L (-2.0-2.0); Blood Gas Allen Test Pos; Blood Gas Operator Identificat 33; Blood Gas Sample Site Radial, right; Blood Gas Sample Type Arterial; Carboxyhemoglobin 1.3 %THgb (0.4-20.1); HCO3 ABG 31.1 mmol/L (22-26); Ionized Calcium Level - ABG 1.1 mmol/L (1.1-1.4); Methemoglobin 0.3 % (0.4-1.5); Oxygen Saturation ABG 92.4; PO2 ABG 57.6 mmHg (80.0-100.0); Potassium Level - ABG 3.7 mmol/L (3.5-5.0); Total Hemoglobin 13.2 g/dL (14-18)
[2020-08-01] MEDS: OLANZapine 10 mg VIAL IM ×2 (23:24→23:33)
[2020-08-01] MEDS: water for injection-sterile 10 ML (23:33)
[2020-08-01] MEDS: LORazepam 2 mg/mL INJ 1 mL IVP (23:35)
[2020-08-02] VITALS (90 sets, daily range): BP systolic 91–188; BP diastolic 55–102; PULSE 53–94; RESP 9–23; TEMP 36.2–36.8; O2SAT 67–100
[2020-08-02] MEDS: dexmedetomidine 400 MCG in sodium chloride 0.9% (100 ml) 100 ML 24.8 MCG IV ×3 (01:02→08:10)
[2020-08-02] MEDS: LORazepam 2 mg/mL INJ 1 mL IVP ×3 (02:35→20:03)
[2020-08-02] MEDS: HYDROcodone-acetaminophen 10-325 mg Tablet 1 TAB PO (03:59)
[2020-08-02] MEDS: vancomycin 1,500 MG/300 ML PIGGYBACK 200 MG IV (05:18)
[2020-08-02 05:34] LABS: Basophils % 0.1 %; Eosinophils # 0.1 10^3/uL (0.0-0.8); Eosinophils % 0.5 %; Hematocrit 41.7 % (42.0-52.0); Hemoglobin 13.1 g/dL (11.7-16.6); Lymphocytes % 9.1 %; Mean Corpuscular HGB Conc 31.4 g/dL (30.0-36.0); Mean Corpuscular Hemoglobin 30.8 pg (28.0-34.0); Mean Corpuscular Volume 97.9 fL (80-94); Mean Platelet Volume 12.4 fL (7.4-10.4); Monocytes # 1.2 10^3/uL (0.2-0.9); Monocytes % 10.4 %; Neutrophils # 8.77 10^3/uL (1.8-7.7); Neutrophils % 79.5 %; Nucleated Red Blood Cells % 0 %; Platelet Count 155 10^3/cmm (130-400); Red Blood Count 4.26 10^6/uL (4.1-5.3); Red Cell Distribution Width 13.1 % (12.1-15.1)
[2020-08-02 05:52] LABS: Alanine Aminotransferase 12 U/L (0-41); Albumin Level 3.2 g/dL (3.5-5.2); Alkaline Phosphatase 68 IU/L (40-130); Anion Gap 16.1 (5-19); Aspartate Amino Transferase 13 U/L (0-40); Blood Urea Nitrogen 14 mg/dL (8-23); Calcium 8.7 mg/dL (8.5-10.5); Carbon Dioxide 27 mmol/L (22-29); Chloride 98 mmol/L (98-107); Glucose 135 mg/dL (65-115); Osmolality Calculated 287 mOsm/kg (285-295); Potassium 4.1 mmol/L (3.5-5.1); Sodium 137 mmol/L (136-145); Total Protein 7.2 g/dL (6.6-8.7)
[2020-08-02] MEDS: heparin 5,000 unit/mL INJ 1 mL 5000 UNIT SUBCUT ×2 (07:35→17:59)
--- NOTE | 2020-08-02 09:16 | PC.NURSE ---
Rounded with DR tee. pt is currently responsive to pain only. Is on precedex due to increased confusion and agitation last night, but is now being titrated off. Pt does have some 0900 PO meds scheduled. Per nay we can give late when pt is able to swallow again. If pt is not able to swallow at 1100, we will change the route.
[2020-08-02] MEDS: bumetanide 0.25 mg/mL SDV 4 mL 1 MG IV (09:22)
--- NOTE | 2020-08-02 11:09 | PC.NURSE ---
Patient is now completely off of precedex. Patient is agitated. Pulling off EKG leads, attempting to pull out catheter. Patient is trying to get out of bed, but is currently too weak and uncoordinated to walk. Unable to answer orientation questions. Nurse attempts at redirection are not working. Nurse restarted precedex. After pt became calm, nurse updated Dr Webb.
--- NOTE | 2020-08-02 11:25 | PC.NURSE ---
Patient is unable to swallow. Blood pressur ehas been wihtin normal limits so nurse has held atenolol and hydralazine per Dr tee orders. ALso received orders to remove cruz to prevent urethral damage since the patient has been attempting to pull it out
--- NOTE | 2020-08-02 11:44 | PC.NURSE ---
REmoved cruz catheter. 10 ml of fluid removed from balloon, catheter intact.
[2020-08-02] MEDS: azithromycin 500 MG in sodium chloride 0.9% 250 ML 250 MG IV (11:59)
--- NOTE | 2020-08-02 12:12 | PC.CHAP ---
Pastoral Care Encounter/Spiritual Assessment Type of Contact [] Declined stamp clerk visit [] Patient/Family/Request visit [] Outpatient visit [] Follow-up visit [] Physician referral [] Code/Alert [x] Routine visit [] Staff referral [] Actively dying [] Patient sleeping [] Family support [] [] Out of room [] Palliative care [] [x] Receiving care in room [] Pre-surgical visit [] Trauma [] Long length of stay [x] ICU visit [] Other: Relational/Emotional Strength [] Patient feels connected with others/family/visitors/staff [] Distress [] Loneliness/isolation [] Abandonment Spirituality of Patient [] Person of Eva [] Attends Gnosticist of their Eva [] Believes in Prayer [] Reads Bible or Roman Catholic materials [] There are Spiritual issues to be addressed Seo Executive Interventions [x] Prayer [] Active listening [] Non-anxious presence [] Spiritual/emotional support [] Crisis/trauma care [] Spiritual counseling [] Bereavement support [] Provided bereavement packet [] Provided Bible/devotional materials [] Provided toy/stuffed animal, coloring book to patient or family member [] Provided Communion [] Anointing/[place] [] Salvation [x] Completed spiritual assessment [] Other: Impact on Illness or Injury [] Angry [] Fearful [] Anxious [] Often cries [] Exhaustion [] Unable to work [] Unable to attend mandaeism [] Unable to walk/stand [] Unable to read [] Unable to drive [] Unable to eat/drink [] Unable to sleep [] Unable to be with family [] Patient intubated [] Other: Summary Time spent with patient
[2020-08-02] MEDS: lidocaine 5% Patch 1 PATCH TOPICAL (13:42)
[2020-08-02] MEDS: dexmedetomidine 400 MCG in sodium chloride 0.9% (100 ml) 100 ML 10.6 MCG IV (14:11)
--- NOTE | 2020-08-02 15:02 | PM.CONSULT ---
Providers/Reason For Consult Consulting Physican/Specialty*: Parmjit Castanon MD Reason for Consult*: Cellulitis left arm Attending Physician: Abner Webb Primary Care Provider: Tanya Bowman MD History of Present Illness History of Present Illness Bashir Lyon is a 69 year old male I have asked to see for swelling and cellulitis of his left arm. He was seen in our emergency room on 07/31/2020 and diagnosed with a community-acquired pneumonia with acute on chronic respiratory failure. He was also noted to have cellulitis in his left arm. He is placed on vancomycin Rocephin and azithromycin and is been admitted to the intensive care unit. Apparently there was some problems with agitated behavior requiring sedation. He was sedated and at the time of my evaluation this morning was unable to give any history. He has been reported to me this afternoon that his mental status has not improved. Nursing reports that the redness of the left arm is better. Meds/Allergies Home Medications and Allergies Home Medications Medication Instructions Recorded Confirmed Last Taken Type cyclobenzaprine 10 mg tablet 15 mg PO TID tab 05/10/19 08/01/20 Unknown History albuterol sulfate [Ventolin HFA] 2 puff INHALATION Q6H PRN 08/01/20 08/01/20 Unknown History amlodipine 10 mg PO DAILY 08/01/20 08/01/20 Unknown History atenolol 100 mg PO DAILY 08/01/20 08/01/20 Unknown History doxycycline hyclate 100 mg PO BID 08/01/20 08/01/20 Unknown History furosemide 10 mg PO DAILY 08/01/20 08/01/20 Unknown History furosemide 40 mg PO DAILY 08/01/20 08/01/20 Unknown History hydralazine 10 mg PO TID 08/01/20 08/01/20 Unknown History hydroxyzine HCl 50 mg PO TID PRN MDD 6 TABS 08/01/20 08/01/20 Unknown History lisinopril-hydrochlorothiazide 2 tab PO DAILY 08/01/20 08/01/20 Unknown History meloxicam 15 mg PO DAILY PRN 08/01/20 08/01/20 Unknown History mirtazapine 30 mg PO BEDTIME 08/01/20 08/01/20 Unknown History pregabalin 225 mg PO DAILY 08/01/20 08/01/20 Unknown History quetiapine 400 mg PO BID 08/01/20 08/01/20 Unknown History sertraline 100 mg PO DAILY 08/01/20 08/01/20 Unknown History tramadol 50 mg PO Q6H PRN 08/01/20 08/01/20 Unknown History Allergies Allergy/AdvReac Type Severity Reaction Status Date / Time No Known Allergies Allergy Verified 07/30/20 10:48 Current Medications Current Medications Generic Name Dose Route Start Last Admin Trade Name Aileen PRN Reason Stop Dose Admin Acetaminophen 500 mg 07/31/20 23:50 08/01/20 05:38 Acetaminophen 500 Mg Tablet PO 500 mg Q6H PRN Administration MILD PAIN OR INCREASE TEMP Hydrocodone Bitart/Acetaminophen 1 tab 08/01/20 20:13 08/02/20 03:59 Hydrocodone-Acetaminophen 10-325 Mg Tablet PO 1 tab Q4H PRN Administration MODERATE PAIN Atenolol 100 mg 08/01/20 09:00 08/02/20 11:25 Atenolol 50 Mg Tablet PO Not Given DAILY BÁRBARA Bumetanide 1 mg 08/01/20 09:00 08/02/20 09:22 Bumetanide 0.25 Mg/Ml Sdv 4 Ml IV 1 mg DAILY BÁRBARA Administration Heparin Sodium (Beef Lung) 5,000 unit 07/31/20 23:50 08/02/20 07:35 Heparin 5,000 Unit/Ml Inj 1 Ml SUBCUT 5,000 unit Q8H BÁRBARA Administration Hydralazine HCl 10 mg 08/01/20 09:00 08/02/20 11:25 Hydralazine 10 Mg Tablet PO Not Given TID BÁRBARA Ceftriaxone Sodium 1,000 mg/ 50 mls @ 100 mls/hr 07/31/20 23:50 08/01/20 23:40 Sodium Chloride IV Infused Q24H BÁRBARA Infusion Protocol Vancomycin/PEG/NADA/Lysine/Water 1,500 mg in 300 mls @ 200 mls/hr 08/01/20 12:00 08/02/20 08:12 Vancocin IV Infused Q18H BÁRBARA Infusion Dexmedetomidine HCl 400 mcg/ 104 mls @ 0 mls/hr 08/01/20 22:45 08/02/20 14:11 Sodium Chloride IV 0.3 mcg/kg/hr .Q0M BÁRBARA 10.6 mls/hr Administration Protocol Per Protocol Azithromycin 500 mg/ Sodium 250 mls @ 250 mls/hr 08/02/20 12:00 08/02/20 14:12 Chloride IV Infused Q24H BÁRBARA Infusion Lidocaine 1 patch 08/02/20 13:00 08/02/20 13:42 Lidocaine 5% Patch TOPICAL 1 patch [id number] BÁRBARA Administration Lidocaine HCl 1 applic 08/01/20 17:33 08/02/20 03:39 Lidocaine 2% Jelly 5 Ml TOPICAL 1 applic BID PRN Administration PAIN PFSH Acute PFSH: Medical History (Updated 08/01/20 @ 01:09 by Katharina Espinoza MD) Acute lumbar back pain Arthritis Asymptomatic hypertensive urgency Chronic pain of right knee Chronic right shoulder pain Congestive heart failure (CHF) Delusional disorders Essential hypertension Lumbar back pain Lung nodule Peripheral edema Post-traumatic stress disorder, chronic Psychiatric diagnosis Vascular dementia with behavioral disturbance Surgical History (Updated 08/01/20 @ 01:02 by Katharina Espinoza MD) History of arthroplasty of left knee History of knee replacement left Hx of cholecystectomy Family History Other Hypertension Social History Smoking and tobacco status: never smoked Second hand smoke exposure: Yes Smoking risk assessment/counseling performed?: No Alcohol intake: never Desire information about alcohol rehabilitation?: No Counseling given: No Desire information about substance/drug rehabilitation?: No Counseling given: No Lives independently: No Household members: children Current occupational status: retired History of recent travel: No Current gender identity: Male Vitals/I&O/Wt Last Vital Signs Temp 97.2 F L 08/02/20 12:45 Pulse 56 L 08/02/20 14:45 Resp 17 08/02/20 14:45 BP 128/79 08/02/20 14:45 Pulse Ox 98 08/02/20 14:45 08/02/20 08/02/20 08/02/20 06:59 14:59 22:59 Intake Total 295.947 / 1565.947 637.923 / 637.923 Output Total 400 / 2400 1100 / 1100 Balance -104.053 / -834.053 -462.077 / -462.077 Weight last 48 hrs Weight 300 lb Physical Exam Narrative: EXAM NARRATIVE: Examination of the patient's left arm is some swelling and erythema from the second digit extending into the dorsum of the hand. The overlying skin appears intact. In addition there is generalized edema throughout the entire left arm. There is no palpable fluctuance or crepitance. With the patient's mental status I cannot appreciate any pain with motion of the digits wrist or elbow. Cannot obtain a neurovascular exam. Urinary Catheter Management^: Leong: Cath Placed During This Visit: yes Reason for Continuing Indwelling Catheter: Acute Urinary Retention or Obstruction Urinary Catheter Date of Insertion: 08/01/20 Urinary Catheter Time of Insertion: 01:55 Data Micro: Micro: Microbiology 07/31/20 20:17 Blood Culture - Pr eliminary Blood 07/31/20 19:02 Blood Culture - Pr eliminary Blood NEGATIVE TO JOHN E Imaging^: Other CT: Radiologist's impression: A CT report of the left hand and elbow are reviewed. There is elbow effusion and fluid along the olecranon. No abscess or bone destruction are seen about the hand A&P Assessment and plan (1) Cellulitis: The patient is seems to have cellulitis of the index finger and left hand. There is no erythema or other significant exam finding about the elbow to suggest infection. Unfortunately the patient size does not allow the ideal scan, and MRI to be obtained. I can follow along with the admitting team. Status: Acute Qualifiers: Laterality: left Site of cellulitis: extremity Site of cellulitis of extremity: upper extremity Qualified Code(s): L03.114 - Cellulitis of left upper limb Coding Level of Care Code Acute Hard Tile Setter for [facility] Diagnoses Cellulitis L03.114 Laterality: left Site of cellulitis: extremity Site of cellulitis of extremity: upper extremity
--- NOTE | 2020-08-02 15:55 | PC.NURSE ---
Patient has now developed swelling to the left proximal forearm and elbow. Yesterday and this morning swelling was limited to the fingers, and hand. Sensation, motor function, and circulation still intact. Nurse alerted Dr tee. Nurse also alerted Dr Spicer per nay's request. No new orders received.
--- NOTE | 2020-08-02 17:55 | PC.NURSE ---
Nurse bladder scanned patient to see if straight cath was necessary. No urine output for 4 hours since cruz removal. Scan shows 50 ml urine. Straight cath not indicated.
--- NOTE | 2020-08-02 17:55 | PC.NURSE ---
patient has become increasingly agitate after nurse repositioned him. Was previously sleeping. now attempting to get out of bed, pulling at lines, and stating that he needs to go to the cafeteria. Unable to answer any orientation questions. Unable to redirect patient. precedex increased.
[2020-08-02] MEDS: dexmedetomidine 400 MCG in sodium chloride 0.9% (100 ml) 100 ML 21.2 MCG IV (19:39)
--- NOTE | 2020-08-02 20:20 | PM.PN ---
Subjective Subjective: Interval history: Last night had a very restless night. Resting this morning, although again restless later in the day, confused and Precedex had to be restarted. Vitals/I&O/Wt Last Vital Signs Temp 98.3 F 08/02/20 18:00 Pulse 77 08/02/20 19:55 Resp 15 08/02/20 19:55 BP 164/97 08/02/20 18:45 Pulse Ox 96 08/02/20 19:55 08/02/20 08/02/20 08/02/20 06:59 14:59 22:59 Intake Total 295.947 / 1565.947 637.923 / 637.923 184.730 / 822.653 Output Total 400 / 2400 1100 / 1100 Balance -104.053 / -834.053 -462.077 / -462.077 184.730 / -277.347 Physical Exam Const: COMMON NORMALS: no acute distress; negative for patient oriented x3 GENERAL APPEARANCE: disheveled and lethargic NUTRITIONAL APPEARANCE: obese ORIENTATION/CONSCIOUSNESS: Yes confused and Yes lethargic OTHER: BiPAP on. Asleep. HENMT: COMMON NORMALS: oropharynx normal Neck/C-Spine: COMMON NORMALS: no JVD Resp: COMMON NORMALS: normal respiratory effort AUSCULTATION: diminished lung sounds Cardio: COMMON NORMALS: no JVD, regular rhythm, S1 normal heart sound present, S2 normal heart sound present and No murmurs present (Cardio) RHYTHM: regular rhythm HEART SOUNDS: S1 normal heart sound present and S2 normal heart sound present GI: COMMON NORMALS: Normal to inspection, nondistended, normoactive bowel sounds present, Soft to palpation and non-tender PALPATION: Yes Soft to palpation Extremity: COMMON NORMALS: no joint enlargement GENERAL: Yes edema (2+ LE) OTHER: Left hand, forearm with 2+ swelling, dorsally mostly. No loss of sensation. Hand warm, well perfused. No cyanosis or mottling. No significant erythema. Minimal skin crack over left third knuckle, without surrounding erythema, no drainage. Neuro: COMMON NORMALS: moves all extremities; negative for patient oriented x3 SENSORIUM/ORIENTATION: Yes lethargic Skin: COMMON NORMALS: no rashes or lesions noted GENERAL SKIN EXAM: no rashes or lesions noted OTHER: Extensive acanthosis nigricans of lower extremities, venous stasis, venous stasis dermatitis, bilateral erythema irregular elongated patches mid anterior shins, some eschar from previous healed ulcerations. Currently no drainage. Urinary Catheter Management^: Leong: Cath Placed During This Visit: yes Reason for Continuing Indwelling Catheter: Acute Urinary Retention or Obstruction Urinary Catheter Date of Insertion: 08/01/20 Urinary Catheter Time of Insertion: 01:55 Data : 08/02/20 04:52 08/02/20 04:52 Micro: Microbiology 07/31/20 20:17 Blood Culture - Preliminary Blood 07/31/20 19:02 Blood Culture - Preliminary Blood NEGATIVE TO DATE A&P Assessment and plan (1) Acute encephalopathy: Very confused last night, restless, agitated, pulling of BiPAP, not redirectable, required multiple doses of antipsychotic medication. Resting this morning. Weaned off Precedex, but subsequently again restless, still confused, Precedex had to be restarted. Due to pulling on Leong catheter catheter was discontinued. Appears to be bothered by pain in the left arm. Added lidocaine patch. Could not reach his to discuss. Appears his son had pointed out quetiapine as one of his medication is at home will restart at lower dose 100 mg nightly in case he is able to take this. With change in mental status of unclear etiology, possibly secondary to septic encephalopathy, but cannot rule out withdrawal from opioid medications which she has not been able to receive. Will resume them at lower dosing including pregabalin, sertraline. Possible withdrawal from cyclobenzaprine? Tramadol? Continue treatment of underlying infections. Supportive care. Sedation as needed to prevent injury to self or others. Status: Acute (2) Sepsis: Continue to antibiotics. Appreciate orthopedic recommendations. Pneumonia, cellulitis. As below. Attempted to reach his by phone for update. Status: Acute (3) Community acquired pneumonia: So far cooperating with BiPAP. Oxygenation appears stabilized on 4 L when not on BiPAP. Continue ceftriaxone. Azithromycin changed to IV formulation. Continue IV antibiotics. Neg COVID PCR Status: Acute (4) Acute on chronic respiratory failure with hypoxia and hypercapnia: Multifactorial. Polypharmacy. Recently decreased Lyrica dose. Avoid pain medications at this time due to confusion. Treat pneumonia. Treat CHF. Status: Acute (5) Cellulitis: Continue vancomycin, Rocephin. Appreciate orthopedic assessment regarding left upper extremity joint effusion, fluid collection. Negative venous duplex ultrasound. Status: Acute Qualifiers: Laterality: left Site of cellulitis: extremity Site of cellulitis of extremity: upper extremity Qualified Code(s): L03.114 - Cellulitis of left upper limb (6) EVELYN (acute kidney injury): Improving. Avoid NSAIDs. Status: Acute (7) Acute exacerbation of CHF (congestive heart failure): Continues on Bumex IV. Monitor I&O. Renal function. Status: Acute (8) Morbid obesity: Status: Acute Additional A&P Information Delusional disorder: Resume low-dose antipsychotic, antidepressant Morbid obesity: He might benefit from sleep study outpatient considering BMI Attestations Medical Necessity Statement*: Continue admission for assessment management of acute encephalopathy, improving sepsis, pneumonia, cellulitis, improving EVELYN. Coding Level of Care Code Acute Medicine Assistant for [facility] Diagnoses Acute encephalopathy G93.40 Sepsis A41.9 Community acquired pneumonia J18.9 Acute on chronic respiratory failure with hypoxia and hypercapnia J96.21; J96.22 Cellulitis L03.114 Laterality: left Site of cellulitis: extremity Site of cellulitis of extremity: upper extremity EVELYN (acute kidney injury) N17.9 Acute exacerbation of CHF (congestive heart failure) I50.9 Morbid obesity E66.01
[2020-08-02 23:22] LABS: Vancomycin Trough 8.5 ug/mL (10-15)
[2020-08-02] MEDS: dexmedetomidine 400 MCG in sodium chloride 0.9% (100 ml) 100 ML 35.4 MCG IV (23:47)
[2020-08-03] VITALS (79 sets, daily range): BP systolic 142–214; BP diastolic 69–129; PULSE 59–102; RESP 0–41; TEMP 36.8–38.2; O2SAT 66–98
[2020-08-03] MEDS: cefTRIAXone 1,000 MG in sodium chloride 0.9% (plus) 50 ML 100 MG IV (00:03)
[2020-08-03] MEDS: heparin 5,000 unit/mL INJ 1 mL 5000 UNIT SUBCUT ×3 (00:04→15:27)
--- NOTE | 2020-08-03 00:08 | PC.PHAR ---
Vancomycin trough level after two doses of 1500mg IVPB every 18 hours is 8.5. Continue 1500mg IVPB every 18 hours and obtain another trough level before fourth dose.
[2020-08-03] MEDS: vancomycin 1,500 MG/300 ML PIGGYBACK 200 MG IV (00:37)
[2020-08-03] MEDS: hyDRALAzine 20 mg/mL INJ 1 mL 15 MG IVP (00:37)
[2020-08-03] MEDS: LORazepam 2 mg/mL INJ 1 mL IVP ×4 (03:08→16:34)
[2020-08-03] MEDS: ziprasidone 20 mg/mL SDV IM (03:52)
[2020-08-03 04:02] LABS: Basophils % 0.3 %; Eosinophils # 0.1 10^3/uL (0.0-0.8); Eosinophils % 0.5 %; Hemoglobin 14.4 g/dL (11.7-16.6); Lymphocytes # 1.2 10^3/uL (0.8-4.8); Lymphocytes % 12.3 %; Mean Corpuscular HGB Conc 32.7 g/dL (30.0-36.0); Mean Corpuscular Hemoglobin 30.8 pg (28.0-34.0); Mean Platelet Volume 12.8 fL (7.4-10.4); Monocytes # 0.7 10^3/uL (0.2-0.9); Monocytes % 7.4 %; Neutrophils # 7.61 10^3/uL (1.8-7.7); Neutrophils % 79.2 %; Nucleated Red Blood Cells % 0 %; Platelet Count 172 10^3/cmm (130-400); Red Blood Count 4.68 10^6/uL (4.1-5.3); Red Cell Distribution Width 12.8 % (12.1-15.1); White Blood Count 9.6 10^3/uL (4.0-10.0)
[2020-08-03 04:17] LABS: Alanine Aminotransferase 13 U/L (0-41); Albumin Level 3.4 g/dL (3.5-5.2); Alkaline Phosphatase 74 IU/L (40-130); Anion Gap 16.7 (5-19); Aspartate Amino Transferase 15 U/L (0-40); Blood Urea Nitrogen 17 mg/dL (8-23); Carbon Dioxide 27 mmol/L (22-29); Chloride 100 mmol/L (98-107); Globulin 4.6 g/dL (1.3-4.6); Glucose 104 mg/dL (65-115); Osmolality Calculated 292 mOsm/kg (285-295); Potassium 3.7 mmol/L (3.5-5.1); Sodium 140 mmol/L (136-145); Total Bilirubin 0.8 mg/dL (0.15-1.2)
--- NOTE | 2020-08-03 07:35 | PC.NURSE ---
Patient is pulling off lines and attempting to get out of bed while repeatedly saying I need to stay in bed . Patient is unable to answer any orientation questions. Nurse administered 2mg of ativan.
--- NOTE | 2020-08-03 08:52 | US_ITS ---
WS: [id number] ULTRASOUND SOFT TISSUES LEFT elbow HISTORY: assessment for drainable fluid - L elbow joint COMPARISON: CT 08/01/2020 TECHNIQUE: 2-D and color Doppler imaging is submitted. There is a large amount of soft tissue edema around the elbow. In the region of the olecranon there i s soft tissue area of thickening. This is not fluid density. No significant increased vascularity. M ay be related to synovitis or blood products. This is not a drainable collection. There are no focal collections around the elbow for which aspiration can be attempted. US/US soft tissue/extremity [id number] IMPRESSION: 1. Soft tissue edema surrounding the elbow. 2. Mild thickening of the olecranon bursa and suspect changes of mild synoviti s. There are no drainable collections.
--- NOTE | 2020-08-03 09:05 | P.PN_ITS ---
Subjective Subjective: Interval history: Patient still sedate and confused. Vitals/I&O/Wt Last Vital Signs Temp 99.3 F 08/03/20 07:45 Pulse 82 08/03/20 07:45 Resp 36 H 08/03/20 07:45 BP 168/108 08/03/20 07:45 Pulse Ox 94 08/03/20 07:45 08/02/20 08/03/20 08/03/20 22:59 06:59 14:59 Intake Total 246.656 / 884.579 486.887 / 1371.466 Output Total 1200 / 2300 Balance 246.656 / -215.421 -713.113 / -928.534 Weight last 48 hrs Weight 320 lb 14.4 oz Physical Exam Narrative: EXAM NARRATIVE: Less swelling left arm elbow and forearm. Some persistent swelling in the dorsum of hand and index finger with slightly increased erythema distally today. Really no particular erythema about the elbow. I am really unable to localize any focal tenderness or fluctuance. Some pain with motion digits wrist and elbow but with altered mental status I really cannot localize any findings Urinary Catheter Management^: Leong: Cath Placed During This Visit: yes Reason for Continuing Indwelling Catheter: Acute Urinary Retention or Obstruction Urinary Catheter Date of Insertion: 08/01/20 Urinary Catheter Time of Insertion: 01:55 Data : 08/03/20 03:31 08/03/20 03:31 Micro: Microbiology 07/31/20 20:17 Blood Culture - Preliminary Blood A&P Assessment and plan (1) Cellulitis: Status: Acute Qualifiers: Laterality: left Site of cellulitis: extremity Site of cellulitis of extremity: upper extremity Qualified Code(s): L03.114 - Cellulitis of left upper limb (2) Left arm swelling: Cannot localize any obvious infectious process. The CT scan alluded to some fluid over the olecranon or elbow. I do not think this represents infected olecranon bursitis. Unfortunately, a better imaging study such as an MRI was not possible in our scanner. I discussed options with medicine. I think they could consider a CT-guided aspiration of the fluid to see if this is purulent. If that is not possible I would suggest MRI scanning and this may require referral to a tertiary hospital. Status: Acute Attestations Medical Necessity Statement*: As per medicine Coding Level of Care Code Acute Equipment Service Associate for [facility] Diagnoses Cellulitis L03.114 Laterality: left Site of cellulitis: extremity Site of cellulitis of extremity: upper extremity Left arm swelling M79.89
[2020-08-03] MEDS: lidocaine 5% Patch 1 PATCH TOPICAL (09:14)
--- NOTE | 2020-08-03 09:23 | PC.NURSE ---
Patient has started to become restless again, repositioning and redirection did not work to calm patient. Patient started try to get out of bed yelling he had to pee. Urinal provided to patient but he was unable to void. Nurse performed straight catheter and pt voided 450 ML or urine. pt is now resting in bed.
[2020-08-03] MEDS: bumetanide 0.25 mg/mL SDV 4 mL 1 MG IV (09:31)
[2020-08-03] MEDS: hyDRALAzine 20 mg/mL INJ 1 mL 10 MG IVP ×2 (10:30→14:36)
[2020-08-03] MEDS: morphine 4 mg/mL SDV 1 mL 2 MG IVP ×2 (11:26→15:21)
[2020-08-03] MEDS: azithromycin 500 MG in sodium chloride 0.9% 250 ML 250 MG IV (13:02)
--- NOTE | 2020-08-03 13:50 | PC.NURSE ---
Straight cath performed on patient. 800 ML voided.
--- NOTE | 2020-08-03 14:23 | PC.NURSE ---
Patient has become very restless, attempting to get out of bed. Yelling that he needs to go pee. Nurse performed straight cath. pt voided 600 ml.
--- NOTE | 2020-08-03 14:25 | PC.NURSE ---
Patient's son informed the nurse that the patient takes hydrocodone at home but does not have a prescription. Son thinks withdrawal may be causing some of the confusion/agitation. Nurse informed Dr Webb. No new orders at this time. Continue prn Morphine as indicated.
--- NOTE | 2020-08-03 16:37 | PC.SOCIAL ---
*IMM UPDATE* IMM update given to pt's , Joycelyn via phone. Understood Initialed, dated, timed and placed in chart.
--- NOTE | 2020-08-03 18:57 | PC.NURSE ---
Transfer orders for [facility] received. Report called to VIKTOR Luo at [facility]. Consent for transfer signed by Pt's son eagle balderrama since pt has an altered mental status. Transported [facility]. Home medications given to natalie soto.
--- NOTE | 2020-08-03 19:01 | PC.NURSE ---
Addendum entered by Salvatore Chowdhury RN 08/03/20 19:03: NUrse attempted to call pt's and alert her to transfer. No answer. THe patient's son is aware of transfer. Original Note: Nurse called pts ambrosio and alerted her to transfer.
--- NOTE | 2020-08-03 19:08 | PM.DCS ---
Discharge Providers Date of Admission: 07/31/20 22:03 Date of Discharge: August 03, 2020 Attending Provider at Admission: Katharina Espinoza MD Attending Provider at Discharge: Abner Webb Primary Care Provider: Tanya Bowman MD Diagnoses at Discharge Discharge Diagnosis (1) Cellulitis: Status: Acute Qualifiers: Laterality: left Site of cellulitis: extremity Site of cellulitis of extremity: upper extremity Qualified Code(s): L03.114 - Cellulitis of left upper limb (2) Left arm swelling: Status: Acute Reason for Visit Reason for Visit: LEFT ELBOW PAIN Hospital Course Hospital Course 69-year-old gentleman with history of chronic back pain, chronic pain of the right knee, right shoulder, history of PTSD, reported history of vascular dementia, although living independently, with his intermittently staying with him, receiving some help from his son and daughter, in the past evaluated multiple times by primary care provider due to resistant hypertension, episodes of drowsiness, was admitted on 07/03 due to worsening left hand, forearm/arm pain and shortness of breath. Recently had his antipsychotic medication Lyrica adjusted. He denied injury to his left hand, with swelling noted worse in the dorsum, small spot over the third knuckle with possible skin opening. He reports swelled up overnight. On presentation noted to be in sepsis, acute hypoxic and hypercapnic respiratory failure, required temporary BiPAP support. Received a dose of Zosyn, vancomycin in the ER, subsequently treated with ceftriaxone, azithromycin, vancomycin. Chest x-ray showed developing left basilar pneumonia. CT angiogram the chest showed no pulmonary embolus. Showed hepatic steatosis. Venous duplex of left upper extremity without VTE. He was noted febrile, 100.5 Fahrenheit. Sinus tachycardia 106., Maintaining blood pressures, 164/101. Respirate 14, pulse ox 96%. He was noted to have mild acute kidney injury, creatinine 1.3. At home taking lisinopril-HCTZ, Lasix. 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 His mental status initially improved. He was able to provide some history, but quickly again became more confused, restless. Unable to tolerate oral medications. Was not able to receive his antipsychotic, antidepressant, quetiapine, sertraline, mirtazapine, as well as tramadol, cyclobenzaprine. Was having quite a bit of pain in his left arm. Due to concern for deeper tissue infection CT hand and elbow was obtained with contrast. No fluid collection found in the hand. No abscess or bone destruction. Mild diffuse cellulitis noted. Severe osteoarthritis at first carpometacarpal joint and radiocarpal joint. CT of the elbow very limited evaluation, no fracture, mild diffuse colitis, moderate-sized joint effusion reported with no history of trauma septic joint not excluded. Fluid collection along the olecranon noted, typical occasion for olecranon bursitis, however, noted abscess could not be excluded. Assessment by orthopedics, MRI of the extremity requested. Unfortunately cannot provide much history, review of systems or participate in exam. Could not undergo MRI due to size limitations, weighing 145 kg, BMI 48.8, as well as due to not following commands well, without ability for MRI with sedation, monitoring would not be able to stay still. Antibiotic treatment was continued. Swelling has been improving with elevation, erythema improving over the left hand. However continued having pain. Spiking low-grade temperatures. Orthopedics recommended discussing with radiology to see if CT-guided aspiration can be performed. Radiology recommended additional assessment by ultrasound which did not show drainable or accessible fluid. In the meantime he is also noted growing coagulase-negative staph now in 2/4 bottles in blood culture from 07/31. Blood culture repeated today. Discussing with his son, his , it appears his hydrocodone had been discontinued sometime in the past, however, he has been procuring hydrocodone from the street, possibly with the help of his son due to persistent pain. It is unclear how much blood he has been taking. His denies that he has been injecting any drugs. However, she also has not been living with him very much recently. The son and also report that he has had intermittent episodes of confusion, lethargy at home, and episodes of confusion had been also assessed by psychiatry. He has been following with behavioral health care in [place]. As he is unable to tolerate oral medications he was started on IV morphine. For pain and possible opiate withdrawal. Transiently on Precedex as well, however, not tolerating it very well due to heart rates becoming bradycardic. Blood pressures intermittently very elevated, 200/90, treated with as needed IV hydralazine. His oxygenation has stabilized, and he is saturating well on 2 L nasal cannula. COVID-19 PCR was negative. EVELYN improved. As we are unable to closer assess and exclude possible infection his left elbow, with persistence of encephalopathy, fevers, orthopedics recommends pursuing transfer to a facility which may accommodate obtaining MRI with his size, and sedation and monitoring. He is currently accepted for additional assessment and management over at [facility] on discussion with the accepting hospitalist Dr. Flores. Both his and son on discussion of risks and benefits of transfer are agreeable to proceed. Physical Exam Const: COMMON NORMALS: no acute distress; negative for patient oriented x3 GENERAL APPEARANCE: disheveled NUTRITIONAL APPEARANCE: obese ORIENTATION/CONSCIOUSNESS: Yes confused OTHER: Awake, confused. Repeating his date of . HENMT: COMMON NORMALS: oropharynx normal Neck/C-Spine: COMMON NORMALS: no JVD Resp: COMMON NORMALS: normal respiratory effort AUSCULTATION: diminished lung sounds Cardio: COMMON NORMALS: no JVD, regular rhythm, S1 normal heart sound present, S2 normal heart sound present and No murmurs present (Cardio) RHYTHM: regular rhythm HEART SOUNDS: S1 normal heart sound present and S2 normal heart sound present GI: COMMON NORMALS: Normal to inspection, nondistended, normoactive bowel sounds present, Soft to palpation and non-tender PALPATION: Yes Soft to palpation Extremity: COMMON NORMALS: no joint enlargement GENERAL: Yes edema (2+ LE) OTHER: Left hand, forearm with 2+ swelling, dorsally mostly. Decreasing. No loss of sensation. Hand warm, well perfused. No cyanosis or mottling. No significant erythema. Minimal skin crack over left third knuckle, without surrounding erythema, no drainage. Neuro: COMMON NORMALS: moves all extremities; negative for patient oriented x3 Skin: COMMON NORMALS: no rashes or lesions noted GENERAL SKIN EXAM: no rashes or lesions noted OTHER: Extensive acanthosis nigricans of lower extremities, venous stasis, venous stasis dermatitis, bilateral erythema irregular elongated patches mid anterior shins, some eschar from previous healed ulcerations. Currently no drainage. Urinary Catheter Management^: [place]: Cath Placed During This Visit: yes Reason for Continuing Indwelling Catheter: Acute Urinary Retention or Obstruction Urinary Catheter Date of Insertion: 08/01/20 Urinary Catheter Time of Insertion: 01:55 Discharge Data Data Completed and Pending: Completed Studies During Hospitalization Category Date Time Status CT angio chest PE protcl [id number] Stat Cat Scan 07/31/20 22:[address] elbow LT w con [id number] Routine Cat Scan 08/01/20 10:[address] hand LT w con [id number] Routine Cat Scan 08/01/20 10:33 Completed XR chest 1V nadiya ble [id number] Urgent Exams 07/31/20 18:55 Completed CV echo complete* [id number] Routine Ultrasound 08/01/20 01:11 [place] [id number] Urgent Ultrasound 07/31/20 18:55 Completed US soft tissue/ex tremity [id number] Urge nt Ultrasound 08/03/20 08:52 Completed Pending at discharge Category Date Time Status Blood Culture Sta t Lab 07/31/20 20:17 Results Blood Culture Sta t Lab 08/03/20 17:35 Results Vancomycin Trough Timed Lab 08/03/20 17:30 Received Labs from last 24 hours 08/03/20 08/03/20 08/03/20 17:30 03:31 03:31 WBC 9.6 RBC 4.68 Hgb 14.4 Hct 44.0 MCV 94.0 MCH 30.8 MCHC 32.7 RDW 12.8 Plt Count 172 MPV 12.8 H Neut % (Auto) 79.2 Lymph % (Auto) 12.3 [place] % (Auto) 7.4 Eos % (Auto) 0.5 Baso % (Auto) 0.3 Neut # (Auto) 7.61 Lymph # (Auto) 1.2 [place] # (Auto) 0.7 Eos # (Auto) 0.1 Baso # (Auto) 0.0 Nucleated RBC % (a uto) 0 Nucleated RBCs # 0.0 O2 Delivery Device Sodium 140 Potassium 3.7 Chloride 100 Carbon Dioxide 27 Anion Gap 16.7 BUN 17 Creatinine 0.9 GFR Calculation Not Reportable Glucose 104 Calculated Osmolal ity 292 Calcium 9.0 Total Bilirubin 0.8 AST 15 ALT 13 Alkaline Phosphata se 74 Total Protein 8.0 Albumin 3.4 L Globulin 4.6 Vancomycin Trough Pending 08/02/20 08/01/20 22:50 22:45 WBC RBC Hgb Hct MCV MCH MCHC RDW Plt Count MPV Neut % (Auto) Lymph % (Auto) [place] % (Auto) Eos % (Auto) Baso % (Auto) Neut # (Auto) Lymph # (Auto) [place] # (Auto) Eos # (Auto) Baso # (Auto) Nucleated RBC % (a uto) Nucleated RBCs # O2 Delivery Device Not Reportable Sodium Potassium Chloride Carbon Dioxide Anion Gap BUN Creatinine GFR Calculation Glucose Calculated Osmolal ity Calcium Total Bilirubin AST ALT Alkaline Phosphata se Total Protein Albumin Globulin Vancomycin Trough 8.5 L Vitals: Last Vital Signs Temp 100.7 F H 08/03/20 18:56 Pulse 92 08/03/20 18:56 Resp 20 H 08/03/20 18:56 BP 200/91 08/03/20 18:56 Pulse Ox 92 08/03/20 18:56 Discharge Plan Discharge Patient Disposition: Xfer Short-Term Hosp Condition: Serious Prescriptions: No Action cyclobenzaprine 10 mg tablet 15 mg PO TID RF: 0 furosemide 40 mg tablet 40 mg PO DAILY RF: 0 hydralazine 10 mg tablet 10 mg PO TID RF: 0 lisinopril-hydrochlorothiazide 20-12.5 mg tablet 2 tab PO DAILY RF: 0 atenolol 100 mg tablet 100 mg PO DAILY RF: 0 meloxicam 15 mg tablet 15 mg PO DAILY PRN (Reason: Pain) RF: 0 sertraline 100 mg tablet 100 mg PO DAILY RF: 0 hydroxyzine HCl 50 mg Tablet 50 mg PO TID MDD 6 TABS PRN (Reason: ITCHING, ANXIETY, INSOMNIA) RF: 0 tramadol 50 mg tablet 50 mg PO Q6H PRN (Reason: Pain) RF: 0 amlodipine 10 mg tablet 10 mg PO DAILY RF: 0 mirtazapine 30 mg tablet 30 mg PO BEDTIME RF: 0 furosemide 20 mg tablet 10 mg PO DAILY RF: 0 Ventolin HFA 90 mcg/actuation HFA aerosol inhaler 2 puff INHALATION Q6H PRN (Reason: SHORTNESS OF BREATH/WHEEZING) RF: 0 doxycycline hyclate 100 mg tablet 100 mg PO BID RF: 0 pregabalin 225 mg capsule 225 mg PO DAILY RF: 0 quetiapine 400 mg tablet 400 mg PO BID RF: 0 Discharge Orders: Transfer Out of Facility (Order); Ordered 08/03/20 Ordered By: Abner Webb Referrals: Tanya Bowman MD [Primary Care Provider] - Discharge Attestations Time Spent in Discharge Care*: greater than 30 min Quality Metrics Clinical Quality Measures During this hospital stay, did patient experience: None Coding Level of Care Code Acute Chg FW DC note Diagnoses Cellulitis L03.114 Laterality: left Site of cellulitis: extremity Site of cellulitis of extremity: upper extremity Left arm swelling M79.89
[2020-08-03 19:10] LABS: Vancomycin Trough 10.4 ug/mL (10-15)
== END 2020-08-03 18:20 | disposition skilled nursing facility (03) | DRG 871 ==
LOC: ER 19:02 → CSU 22:33 → ICU 23:50
PROVIDERS: Admitting Provider Internal Medicine; Emergency Provider Emergency Medicine; PCP Family Medicine; Visit Provider Internal Medicine
DX: A41.9 Sepsis, unspecified organism (principal); J18.9 Pneumonia, unspecified organism; I50.33 Acute on chronic diastolic (congestive) heart failure; J96.22 Acute and chronic respiratory failure with hypercapnia; J96.21 Acute and chronic respiratory failure with hypoxia; G93.41 Metabolic encephalopathy; L03.114 Cellulitis of left upper limb; E87.2 Acidosis; N17.9 Acute kidney failure, unspecified; F01.51 Vascular dementia, unspecified severity, with behavioral disturbance; Z68.42 Body mass index [BMI] 45.0-49.9, adult; I11.0 Hypertensive heart disease with heart failure; G89.29 Other chronic pain; M25.561 Pain in right knee; M25.511 Pain in right shoulder; M54.5 Low back pain; R91.8 Other nonspecific abnormal finding of lung field; F43.12 Post-traumatic stress disorder, chronic; Z96.652 Presence of left artificial knee joint; E66.01 Morbid (severe) obesity due to excess calories; T42.6X5A Adverse effect of other antiepileptic and sedative-hypnotic drugs, initial encounter; M70.22 Olecranon bursitis, left elbow; K76.0 Fatty (change of) liver, not elsewhere classified
CPT/HCPCS: 36415; 36600; 51702; 51798; 71045; 71275; 73201; 76882; 80048; 80051; 80053; 80202; 81001; 82330; 82550; 82803; 82805; 83605; 83690; 83880; 84145; 84484; 85025; 86140; 86403; 87040; 87205; 87426; 87449; 87635; 93005; 93306; 93971; 94640; 94660; 96365; 96366; 96367; 96372; 96375; 99291; 99292; J0360; J0456; J0696; J1630; J1644; J2060; J2270; J2405; J2543; J3370; J3486; J3490; J7050; Q0144; Q9967

== ENCOUNTER → 2020-12-06 16:50 | Outpatient (BNVA) | payer MEDICARE, SELFPAY | PROVIDERS: PCP Family Medicine; Visit Provider Family Medicine | DX: I10 Essential (primary) hypertension (principal); I50.23 Acute on chronic systolic (congestive) heart failure; M25.561 Pain in right knee; G89.29 Other chronic pain; J44.9 Chronic obstructive pulmonary disease, unspecified; M19.90 Unspecified osteoarthritis, unspecified site; F01.51 Vascular dementia, unspecified severity, with behavioral disturbance; F22 Delusional disorders | CPT/HCPCS: 80053; 80061; 83880; 85025 ==